=== PATIENT | male | born 2000 | race Caucasian/White ===

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

== ENCOUNTER 2018-03-08 18:13 | Emergency (ER) | payer MEDICAID ==
[~2018-03-08] VITALS: Ht 175.3 cm; Wt 68.0 kg
[2018-03-08 19:44] LABS: CLARITY URINE CLEAR (CLEAR); COLOR URINE YELLOW (YELLOW); KETONES URINE TRACE (NEGATIVE); LEUKOCYTE ESTERASE URINE NEGATIVE (NEGATIVE); NITRITE URINE NEGATIVE (NEGATIVE); OCCULT BLOOD URINE NEGATIVE (NEGATIVE); PROTEIN URINE NEGATIVE (NEGATIVE); SPECIFIC GRAVITY URINE 1.029 (1.005-1.030)
[2018-03-08 20:30] LABS: BASOPHILS % 0.9 % (0.0-2.0); EOSINOPHILS % 10.7 % (0.0-5.0); HEMATOCRIT. 42.1 % (42.0-52.0); HEMOGLOBIN. 14.9 g/dL (14.0-18.0); LYMPHOCYTES % 23.5 % (20.0-50.0); MEAN CORPUSCULAR HEMOGLOBIN 32.5 pg (28.0-32.0); MEAN CORPUSCULAR VOLUME 91.8 fL (80.0-94.0); MEAN PLATELET VOLUME 8.6 fl (7.4-10.4); MONOCYTES % 6.9 % (2.0-8.0); PLATELET 208 x1000/uL (130-400); RED BLOOD CELL COUNT 4.58 mill/uL (4.7-6.1); RED CELL DISTRIBUTION WIDTH 13.4 % (11.6-14.6)
[2018-03-08 20:36] LABS: CHLORIDE 104 mEq/L (98-107)
[2018-03-08 20:37] LABS: INR 1.1; PROTHROMBIN TIME 11.4 sec (9.4-11.6)
[2018-03-09 02:38] VITALS: BP 103/69
== END 2018-03-09 04:44 | disposition home or self-care (01) ==
LOC: ER 19:10
DX: R10.12 Left upper quadrant pain (principal); F12.10 Cannabis abuse, uncomplicated; Z87.440 Personal history of urinary (tract) infections
CPT/HCPCS: 36415; 76770; 80053; 81003; 83690; 85025; 85610; 99285; Z7610